=== PATIENT | male | born 1970 | race Caucasian/White ===

== ENCOUNTER 2021-06-26 08:30 | Day surgery (SDC) | payer BC, OTHER ==
[2021-06-21 13:20] VITALS: BMI 27.9
[~2021-06-26 08:30] MED LIST: LACTATED RINGERS 1,000 ML IV SCH; LIDOCAINE 1% (10MG/ML) FOR IV START INTRADERMA PRN
[2021-06-26 09:01] VITALS: TEMP 97.6
[2021-06-26] MEDS ORDERED: LABETALOL 5 MG/ML VIAL MDV IVP ONE (09:11)
[2021-06-26] MEDS ORDERED: PROPOFOL 10 MG/ML 20 ML VIAL IV ONE (09:34)
[2021-06-26] MEDS ORDERED: fentaNYL (PF) 50 MCG/ML 2 ML AMP ONE (09:34)
[2021-06-26] MEDS ORDERED: LIDOCAINE 1% INJ 10MG/ML (20 ML MDV) ONE (09:34)
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
--- NOTE | 2021-06-26 09:59 | P.PCN ---
Date of Procedure: 06/26/21 Description of Procedure: PREOPERATIVE DIAGNOSIS: Colonoscopy screening. Personal history colon polyps POSTOPERATIVE DIAGNOSIS: Colonoscopy screening. OPERATION: Colonoscopy to the cecum, ileocecal valve and appendiceal orifice. SURGEON: Marleni Moran MD. ANESTHESIA: MAC. INDICATIONS: The patient is a 50-year-old male who presents for colonoscopy screening. Reports having a colonoscopy over 15-20 years ago with history of polyps. Benefits and risks were described and informed consent was obtained. DESCRIPTION OF PROCEDURE: The patient had undergone Sutab prep. The patient had been brought into the operating room and laid in the left lateral decubitus position. After adequate intravenous sedation, the rectum was examined with 2% lidocaine jelly. External hemorrhoids were encountered. The rectal tone was within normal limits. No lesions were palpated in the rectal vault. An Olympus colonoscope was advanced until the cecum, ileocecal valve and appendiceal orifice were clearly viewed. The prep was fair. No scattered diverticulosis was encountered. No colonic polyps were found. No evidence of focal colitis was found. Retroflexion of the scope demonstrated grade 1 internal hemorrhoids without active bleeding or inflammation. The colon was desufflated. The patient had tolerated the procedure well. Withdrawal time was over 6 minutes. FINDINGS: Aronchick preparation quality scale 2 (1-5) Internal hemorrhoids, grade 1 External prolapsed hemorrhoids, grade 1 No arteriovenous malformations. No adenomatous polyps. No focal colitis. RECOMMENDATIONS: Lower endoscopy in 5 years, 2025 due to personal history of colon polyps Plan - Discharge Summary Discharge Rx Participant: No New Discharge Prescriptions: Continue Simvastatin 5 mg PO HS [place]-3/Dha/Epa/Fish Oil [Fish Oil 500 mg Softgel] 1 each PO DAILY Niacin 500 mg PO DAILY Tony Pill(Unknown Dose) 1 tab PO BID DULoxetine HCL [Cymbalta] 60 mg PO DAILY Multivitamins, Thera [Multivitamin (formulary)] 1 tab PO DAILY Lisinopril [Prinivil] 10 mg PO DAILY traZODone HCL 50 mg PO BID Metoprolol Succinate [Toprol XL] 25 mg PO DAILY Discharge Medication List Tony Pill(Unknown Dose) 1 tab PO BID 06/21/21 [History] Lisinopril [Prinivil] 10 mg PO DAILY 06/21/21 [History] Multivitamins, Thera [Multivitamin (formulary)] 1 tab PO DAILY 06/21/21 [History] Niacin 500 mg PO DAILY 06/21/21 [History] [place]-3/Dha/Epa/Fish Oil [Fish Oil 500 mg Softgel] 1 each PO DAILY 06/21/21 [History] Simvastatin 5 mg PO HS 06/21/21 [History] traZODone HCL 50 mg PO BID 06/21/21 [History] DULoxetine HCL [Cymbalta] 60 mg PO DAILY 06/26/21 [History] Metoprolol Succinate [Toprol XL] 25 mg PO DAILY 06/26/21 [History] Follow up Appointment(s)/Referral(s): Marleni Moran MD [STAFF PHYSICIAN] - As Needed Patient Instructions/Handouts: *Surgery [facility] - (Anesthesia) Endoscopy Discharge Instructions, Colonoscopy (DC) Activity/Diet/Wound Care/Special Instructions: Repeat colonoscopy 5 years, 2025 Discharge Disposition: HOME SELF-CARE
[2021-06-26 10:16] VITALS: BP 154/99; PULSE 87; RESP 16
== END 2021-06-26 10:55 | disposition home or self-care (01) ==
LOC: ORWHC2ENDO 08:30
PROVIDERS: ATTEND Surgery Plastic and Reconstructive Surgery
DX: Z12.11 Encounter for screening for malignant neoplasm of colon (principal); Z86.010 Personal history of colon polyps; K64.8 Other hemorrhoids; K64.4 Residual hemorrhoidal skin tags; Z79.899 Other long term (current) drug therapy; I10 Essential (primary) hypertension; E78.5 Hyperlipidemia, unspecified; Z87.891 Personal history of nicotine dependence; F32.9 Major depressive disorder, single episode, unspecified
CPT/HCPCS: J2001; J3010; J2704; G0105; 45378